=== PATIENT | male | born 2000 | race Caucasian/White ===

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

== ENCOUNTER 2021-10-19 12:42 | Emergency (ER) | payer OTHER ==
[~2021-10-19] VITALS: Ht 170.2 cm; Wt 53.1 kg
[~2021-10-19 12:42] MED LIST: MIRALAX510 GM PO
== END 2021-10-19 15:25 | disposition home or self-care (01) ==
LOC: EMR PED 12:42
DX: J03.90 Acute tonsillitis, unspecified (principal)